=== PATIENT | female | born 1955 | race Caucasian/White ===

== ENCOUNTER 2023-06-15 10:24 | Emergency (ER) | payer OTHER, MEDICAID ==
[~2023-06-15] VITALS: Ht 160 cm; Wt 61.2 kg
[~2023-06-15 10:24] MED LIST: METO-290 PO; TERB250T35 PO; VITAMINS PO; [UNRECOGNIZED DRUG - CODE] IH
[2023-06-15 10:30] VITALS: BP_SYST 160; PULSE 90; RESP 19; TEMP 97.8; O2SAT 99
[2023-06-15 11:12] LABS: BASOPHILS % (AUTO) 0.8 % (0.0-2.0); EOSINOPHILS # (AUTO) 0.3 K/uL (0.0-0.4); EOSINOPHILS % (AUTO) 4.8 % (0.0-4.0); HEMATOCRIT 41.1 % (36-48); HEMOGLOBIN 13.4 g/dL (12.0-16.0); LYMPHOCYTES # (AUTO) 1.9 K/uL (1.0-5.5); LYMPHOCYTES % (AUTO) 32.1 % (20.5-51.5); MEAN CORPUSCULAR HEMOGLOBIN 29 pg (27-31); MEAN CORPUSCULAR HGB CONC 33 % (32-36); MEAN CORPUSCULAR VOLUME 90 fL (79.0-98.0); MONOCYTES # (AUTO) 0.5 K/uL (0.0-1.0); MONOCYTES % (AUTO) 8.9 % (1.7-9.3); NEUTROPHILS # (AUTO) 3.2 K/uL (1.8-7.7); NEUTROPHILS % (AUTO) 53.4 % (40.0-70.0); PLATELET COUNT (AUTO) 232 K/uL (130-430); RED BLOOD CELL COUNT(AUTO) 4.56 MIL/uL (4.2-6.2); RED CELL DISTRIBUTION WIDTH 14.8 % (9.0-15.0)
[2023-06-15 11:31] LABS: ALANINE AMINOTRANSFERASE 24 U/L (12-78); ALBUMIN 3.9 g/dL (3.4-4.8); ANION GAP 5 (5-15); ASPARTATE AMINOTRANSFERASE 19 U/L (10-37); CALCIUM 9.1 mg/dL (8.4-11.0); CARBON DIOXIDE 29 mmol/L (23-29); CHLORIDE 105 mmol/L (98-107); CREATININE 0.66 mg/dL (0.55-1.30); GFR AFRICAN AMERICAN 116 mL/min (>90); GFR NON AFRICAN-AMERICAN 96 mL/min (>90); GLUCOSE 109 mg/dL (74-106); POTASSIUM 3.7 mmol/L (3.5-5.1); SODIUM SERUM 139 mmol/L (136-145); TOTAL BILIRUBIN 0.4 mg/dL (0.0-1.0); UREA NITROGEN, BLOOD 14 mg/dL (8-21)
[2023-06-15 11:56] LABS: AMYLASE 38 U/L (0-100); LIPASE 32 U/L (16-77)
[2023-06-15] MEDS ORDERED: OXYCODONE/ACETAMINOPHEN 5-325 TABLET PO ONE (13:30)
[2023-06-15 14:53] VITALS: BP_SYST 137; PULSE 78; RESP 18; O2SAT 99
== END 2023-06-15 14:54 | disposition home or self-care (01) ==
LOC: SED 10:24
DX: R07.89 Other chest pain (principal); R10.12 Left upper quadrant pain; I10 Essential (primary) hypertension; J44.9 Chronic obstructive pulmonary disease, unspecified; Z88.8 Allergy status to other drugs, medicaments and biological substances; Z79.899 Other long term (current) drug therapy
CPT/HCPCS: 36415; 76376; 80053; 82150; 83690; 84484; 85025; 93005; 99284

== ENCOUNTER 2023-10-03 22:13 | Inpatient (IN) | payer OTHER ==
[~2023-10-03] VITALS: Ht 160 cm; Wt 63.5 kg
[2023-10-03 22:44] VITALS: BP_SYST 144; PULSE 104; RESP 16; TEMP 98.3; O2SAT 95
[2023-10-04 01:59] LABS: BASOPHILS # (AUTO) 0.1 K/uL (0.0-0.2); BASOPHILS % (AUTO) 0.9 % (0.0-2.0); EOSINOPHILS # (AUTO) 0.1 K/uL (0.0-0.4); EOSINOPHILS % (AUTO) 1.9 % (0.0-4.0); HEMATOCRIT 34.6 % (36-48); LYMPHOCYTES # (AUTO) 1.8 K/uL (1.0-5.5); LYMPHOCYTES % (AUTO) 31.8 % (20.5-51.5); MEAN CORPUSCULAR HEMOGLOBIN 31 pg (27-31); MEAN CORPUSCULAR HGB CONC 35 % (32-36); MEAN CORPUSCULAR VOLUME 89 fL (79.0-98.0); MONOCYTES # (AUTO) 0.5 K/uL (0.0-1.0); MONOCYTES % (AUTO) 9.1 % (1.7-9.3); NEUTROPHILS # (AUTO) 3.2 K/uL (1.8-7.7); NEUTROPHILS % (AUTO) 56.3 % (40.0-70.0); PLATELET COUNT (AUTO) 229 K/uL (130-430); RED BLOOD CELL COUNT(AUTO) 3.87 MIL/uL (4.2-6.2); RED CELL DISTRIBUTION WIDTH 14.6 % (9.0-15.0); WHITE BLOOD COUNT (AUTO) 5.7 K/uL (4.8-10.8)
[2023-10-04 02:21] LABS: ANION GAP 10 (5-15); CALCIUM 8.8 mg/dL (8.4-11.0); CARBON DIOXIDE 26 mmol/L (23-29); CHLORIDE 104 mmol/L (98-107); CREATININE 0.56 mg/dL (0.55-1.30); GFR AFRICAN AMERICAN 140 mL/min (>90); GFR NON AFRICAN-AMERICAN 115 mL/min (>90); GLUCOSE 67 mg/dL (74-106); POTASSIUM 3.8 mmol/L (3.5-5.1); SODIUM SERUM 140 mmol/L (136-145); UREA NITROGEN, BLOOD 9 mg/dL (8-21)
[2023-10-04 08:41] VITALS: BP_SYST 144; PULSE 77; O2SAT 92
[2023-10-04] MEDS ORDERED: NALOXONE HCL 0.4 MG/ML AMP (NARCAN) IVP PRN ×3 (08:45→09:30)
[2023-10-04] MEDS ORDERED: DOCUSATE SODIUM 100 MG CAPSULE PO PRN (08:45)
[2023-10-04] MEDS ORDERED: MUPIROCIN 2% TOPICAL OINTMENT 22 GM NS PRN (08:45)
[2023-10-04] MEDS ORDERED: ACETAMINOPHEN 325 MG TABLET PO PRN ×3 (08:45→09:30)
[2023-10-04] MEDS ORDERED: LORazepam 2 MG/ML VIAL IVP PRN (08:45)
[2023-10-04] MEDS ORDERED: MAGNESIUM SULFATE 50 ML IV PRN (08:45)
[2023-10-04] MEDS ORDERED: ONDANSETRON HCL 4 MG/2 ML VIAL IVP PRN (08:45)
[2023-10-04] MEDS ORDERED: IPRATROPIUM/ALBUTEROL SULFATE 3 ML AMPUL.NEB (DUONEB) INH PRN (08:45)
[2023-10-04] MEDS ORDERED: ZOLPIDEM TARTRATE 5 MG TABLET PO PRN (08:45)
[2023-10-04] MEDS ORDERED: MORPHINE 2 MG/ML INJ. SYRINGE IVP PRN ×2 (08:45)
[2023-10-04] MEDS ORDERED: TERbinafine HCL 250 MG TABLET(LamISIL) PO SCH (09:00)
[2023-10-04] MEDS: HYDROCHLOROTHIAZIDE 25 MG TABLET (HCTZ) PO SCH (10:52)
[2023-10-04] MEDS: LISINOPRIL 10 MG TABLET (PRINIVIL) PO ONE (10:56)
[2023-10-04] MEDS: HEPARIN SODIUM,PORCINE 5,000 UNITS/ML VIAL SUBCUT SCH (11:00)
[2023-10-04] MEDS: HYDROcodone/ACETAMIN 5-325 MG TAB (NORCO/ VICODIN) PO PRN (11:55)
[2023-10-04] MEDS ORDERED: METO25TA3 PO (12:17)
[2023-10-04] MEDS ORDERED: LIP10 PO (12:17)
[2023-10-04] MEDS ORDERED: HYDR4TAB57 PO (12:17)
[2023-10-04] MEDS ORDERED: LISI10TA29 PO (12:17)
[2023-10-04] MEDS ORDERED: VARE1TAB24 PO (12:17)
[2023-10-04] MEDS ORDERED: CLON1PAT10 TD (12:17)
[2023-10-04 13:34] VITALS: BP_SYST 128; PULSE 89; RESP 20; TEMP 98.4; O2SAT 99
[2023-10-04 16:30] VITALS: BP_SYST 137; PULSE 84; RESP 18; TEMP 98; O2SAT 98
[2023-10-04 20:00] VITALS: BP_SYST 116; BP_SYST 131; PULSE 67; PULSE 73; RESP 18; TEMP 97.3; TEMP 97.8; TEMP 98.2; O2SAT 96; O2SAT 97; O2SAT 98
[2023-10-04 20:52] LABS: BILIRUBIN,URINE 1+ (NEGATIVE); BLOOD, URINE NEGATIVE (NEGATIVE); CLARITY/URINE CLEAR (CLEAR); COLOR,URINE YELLOW (YELLOW); GLUCOSE,URINE NEGATIVE (NEGATIVE); KETONES,URINE 3+ (NEGATIVE); LEUKOCYTE ESTERASE ,URINE NEGATIVE (NEGATIVE); NITRITE, URINE NEGATIVE (NEGATIVE); PROTEIN URINE NEGATIVE (NEGATIVE); UROBILINOGEN,URINE 0.2 (0.2-1.0)
[2023-10-04 20:58] LABS: RBC,URINE NONE SEEN /HPF (0-3)
[2023-10-04 20:59] LABS: BACTERIA,URINE RARE /HPF (None Seen); MUCUS,URINE None Seen /LPF (None Seen); WBC,URINE 0-3 /HPF (0-3)
[2023-10-05] VITALS: BP_SYST 133; PULSE 69; RESP 18; TEMP 97.8; O2SAT 99
[2023-10-05 08:00] VITALS: O2SAT 98
[2023-10-05 08:10] LABS: CALCIUM 8.9 mg/dL (8.4-11.0); CREATININE 0.85 mg/dL (0.55-1.30); POTASSIUM 3.6 mmol/L (3.5-5.1)
[2023-10-05 08:27] LABS: BASOPHILS % (AUTO) 0.7 % (0.0-2.0); EOSINOPHILS # (AUTO) 0.3 K/uL (0.0-0.4); EOSINOPHILS % (AUTO) 4.8 % (0.0-4.0); HEMATOCRIT 36.8 % (36-48); HEMOGLOBIN 12.5 g/dL (12.0-16.0); LYMPHOCYTES # (AUTO) 2.3 K/uL (1.0-5.5); LYMPHOCYTES % (AUTO) 38.4 % (20.5-51.5); MEAN CORPUSCULAR HEMOGLOBIN 30 pg (27-31); MEAN CORPUSCULAR HGB CONC 34 % (32-36); MEAN CORPUSCULAR VOLUME 90 fL (79.0-98.0); MONOCYTES # (AUTO) 0.5 K/uL (0.0-1.0); MONOCYTES % (AUTO) 8.5 % (1.7-9.3); NEUTROPHILS # (AUTO) 2.8 K/uL (1.8-7.7); NEUTROPHILS % (AUTO) 47.6 % (40.0-70.0); PLATELET COUNT (AUTO) 281 K/uL (130-430); RED BLOOD CELL COUNT(AUTO) 4.11 MIL/uL (4.2-6.2); RED CELL DISTRIBUTION WIDTH 14.6 % (9.0-15.0)
[2023-10-05] MEDS ORDERED: NALOXONE HCL 0.4 MG/ML AMP (NARCAN) IVP PRN (08:45)
[2023-10-05] MEDS: LISINOPRIL 10 MG TABLET (PRINIVIL) PO SCH (10:04)
[2023-10-05] MEDS: HYDROmorphone 2 MG TAB PO PRN (10:32)
[2023-10-05 11:15] VITALS: BP_SYST 128; PULSE 71; RESP 17; TEMP 97; O2SAT 93
[2023-10-05 15:04] VITALS: BP_SYST 129; PULSE 76; RESP 16; TEMP 96.7; O2SAT 96
[2023-10-05 20:19] VITALS: O2SAT 99
[2023-10-06 00:30] VITALS: BP_SYST 135; PULSE 86; RESP 18; TEMP 97.1; O2SAT 93
[2023-10-06 04:10] VITALS: BP_SYST 133; PULSE 81; RESP 17; TEMP 98.3; O2SAT 94
[2023-10-06 07:18] LABS: CALCIUM 8.4 mg/dL (8.4-11.0); CREATININE 0.66 mg/dL (0.55-1.30); POTASSIUM 3.2 mmol/L (3.5-5.1)
[2023-10-06 07:27] LABS: BASOPHILS # (AUTO) 0.1 K/uL (0.0-0.2); BASOPHILS % (AUTO) 0.8 % (0.0-2.0); EOSINOPHILS # (AUTO) 0.3 K/uL (0.0-0.4); EOSINOPHILS % (AUTO) 4.8 % (0.0-4.0); HEMOGLOBIN 12.3 g/dL (12.0-16.0); LYMPHOCYTES # (AUTO) 2.2 K/uL (1.0-5.5); LYMPHOCYTES % (AUTO) 34.4 % (20.5-51.5); MEAN CORPUSCULAR HEMOGLOBIN 30 pg (27-31); MEAN CORPUSCULAR HGB CONC 34 % (32-36); MEAN CORPUSCULAR VOLUME 89 fL (79.0-98.0); MONOCYTES # (AUTO) 0.6 K/uL (0.0-1.0); MONOCYTES % (AUTO) 10.2 % (1.7-9.3); NEUTROPHILS # (AUTO) 3.2 K/uL (1.8-7.7); NEUTROPHILS % (AUTO) 49.8 % (40.0-70.0); PLATELET COUNT (AUTO) 262 K/uL (130-430); RED BLOOD CELL COUNT(AUTO) 4.05 MIL/uL (4.2-6.2); RED CELL DISTRIBUTION WIDTH 14.6 % (9.0-15.0); WHITE BLOOD COUNT (AUTO) 6.4 K/uL (4.8-10.8)
[2023-10-06 08:00] VITALS: BP_SYST 132; PULSE 69; RESP 18; TEMP 98.4; O2SAT 93; O2SAT 99
[2023-10-06] MEDS: POTASSIUM CHLORIDE 20 MEQ TABLET.ER PO PRN (11:07)
[2023-10-06 20:00] VITALS: BP_SYST 129; PULSE 74; RESP 18; TEMP 97.2; O2SAT 96
[2023-10-07] VITALS (7 sets, daily range): BP systolic 130–156; PULSE 72–101; RESP 15–18; TEMP 97–98.4; O2SAT 91–99
[2023-10-07 06:18] LABS: BASOPHILS # (AUTO) 0.1 K/uL (0.0-0.2); BASOPHILS % (AUTO) 0.9 % (0.0-2.0); EOSINOPHILS # (AUTO) 0.3 K/uL (0.0-0.4); EOSINOPHILS % (AUTO) 4.9 % (0.0-4.0); HEMATOCRIT 37.6 % (36-48); LYMPHOCYTES # (AUTO) 2.2 K/uL (1.0-5.5); LYMPHOCYTES % (AUTO) 37.5 % (20.5-51.5); MEAN CORPUSCULAR HEMOGLOBIN 31 pg (27-31); MEAN CORPUSCULAR HGB CONC 35 % (32-36); MEAN CORPUSCULAR VOLUME 90 fL (79.0-98.0); MONOCYTES # (AUTO) 0.5 K/uL (0.0-1.0); MONOCYTES % (AUTO) 9.6 % (1.7-9.3); NEUTROPHILS # (AUTO) 2.7 K/uL (1.8-7.7); NEUTROPHILS % (AUTO) 47.1 % (40.0-70.0); PLATELET COUNT (AUTO) 281 K/uL (130-430); RED BLOOD CELL COUNT(AUTO) 4.18 MIL/uL (4.2-6.2); RED CELL DISTRIBUTION WIDTH 14.9 % (9.0-15.0); WHITE BLOOD COUNT (AUTO) 5.7 K/uL (4.8-10.8)
[2023-10-07 07:06] LABS: CALCIUM 8.8 mg/dL (8.4-11.0); CREATININE 0.91 mg/dL (0.55-1.30); POTASSIUM 3.9 mmol/L (3.5-5.1)
== END 2023-10-07 17:55 | DRG 554 ==
LOC: SED 22:13 → SMU 10-04 05:00
PROVIDERS: ADMIT General Practice; ATTEND General Practice
DX: M19.011 Primary osteoarthritis, right shoulder (principal); F11.20 Opioid dependence, uncomplicated; M47.816 Spondylosis without myelopathy or radiculopathy, lumbar region; E87.6 Hypokalemia; J44.9 Chronic obstructive pulmonary disease, unspecified; E78.5 Hyperlipidemia, unspecified; I10 Essential (primary) hypertension; M19.012 Primary osteoarthritis, left shoulder; Z79.899 Other long term (current) drug therapy
CPT/HCPCS: 36415; 70450-TC; 71045; 72125-TC; 73030; 80048; 81000; 81001; 81015; 83037; 83735; 83880; 84484; 85025; 93005; 94760; 97116-GP; 97530-GP; 99285; J1644

== ENCOUNTER 2024-02-01 13:47 | Inpatient (IN) | payer OTHER ==
[~2024-02-01] VITALS: Ht 144.8 cm; Wt 54.4 kg
[~2024-02-01 13:47] MED LIST changes: +ATOR-449 PO; +CLON1PAT10 TD; +HYDR4TAB57 PO; +LISI10TA29 PO; -METO-290 PO; +METO25TA3 PO; -TERB250T35 PO; +VARE1TAB24 PO
[2024-02-01 13:49] VITALS: BP_SYST 124; PULSE 90; RESP 18; TEMP 97.9; O2SAT 97
[2024-02-01] MEDS: IPRATROPIUM/ALBUTEROL SULFATE 3 ML AMPUL.NEB (DUONEB) INH ONE (14:36)
[2024-02-01] MEDS: DEXAMETHASONE SOD PHOSPHATE 10 MG/ML VIAL IVP ONE (14:50)
[2024-02-01] MEDS: KETOROLAC TROMETHAMINE 30 MG VIAL IVP ONE (14:51)
[2024-02-01 15:10] LABS: BASOPHILS % (AUTO) 0.6 % (0.0-2.0); EOSINOPHILS # (AUTO) 0.1 K/uL (0.0-0.4); EOSINOPHILS % (AUTO) 1.3 % (0.0-4.0); HEMATOCRIT 36.1 % (36-48); HEMOGLOBIN 12.7 g/dL (12.0-16.0); LYMPHOCYTES # (AUTO) 1.4 K/uL (1.0-5.5); LYMPHOCYTES % (AUTO) 24.4 % (20.5-51.5); MEAN CORPUSCULAR HEMOGLOBIN 32 pg (27-31); MEAN CORPUSCULAR HGB CONC 35 % (32-36); MEAN CORPUSCULAR VOLUME 90 fL (79.0-98.0); MONOCYTES # (AUTO) 0.5 K/uL (0.0-1.0); NEUTROPHILS # (AUTO) 3.7 K/uL (1.8-7.7); NEUTROPHILS % (AUTO) 65.7 % (40.0-70.0); PLATELET COUNT (AUTO) 234 K/uL (130-430); RED BLOOD CELL COUNT(AUTO) 4.02 MIL/uL (4.2-6.2); RED CELL DISTRIBUTION WIDTH 15.3 % (9.0-15.0); WHITE BLOOD COUNT (AUTO) 5.7 K/uL (4.8-10.8)
[2024-02-01 15:22] LABS: INR 1.3 (0.8-1.2)
[2024-02-01 15:23] LABS: ANION GAP 9 (5-15); CALCIUM 9.2 mg/dL (8.4-11.0); CARBON DIOXIDE 30 mmol/L (23-29); CHLORIDE 97 mmol/L (98-107); CREATININE 0.73 mg/dL (0.55-1.30); GFR AFRICAN AMERICAN 103 mL/min (>90); GLUCOSE 91 mg/dL (74-106); POTASSIUM 3.1 mmol/L (3.5-5.1); SODIUM SERUM 136 mmol/L (136-145); UREA NITROGEN, BLOOD 11 mg/dL (8-21)
[2024-02-01 15:25] LABS: GFR NON AFRICAN-AMERICAN 85 mL/min (>90)
[2024-02-01 15:47] LABS: INFLUENZA TYPE A Negative (NEGATIVE); INFLUENZA TYPE B NEGATIVE (NEGATIVE)
[2024-02-01] MEDS: POTASSIUM CHLORIDE 20 MEQ/PKT PACKET PO ONE (15:58)
[2024-02-01] MEDS ORDERED: MULT-1279 PO (16:47)
[2024-02-01] MEDS ORDERED: [UNRECOGNIZED DRUG - CODE] TP (16:47)
[2024-02-01] MEDS ORDERED: HYDR25TA4 PO (16:47)
[2024-02-01] MEDS ORDERED: CLON0.5T2 PO (16:47)
[2024-02-01] MEDS ORDERED: ASCO500C18 PO (16:47)
[2024-02-01 17:01] VITALS: BP_SYST 124; PULSE 90; O2SAT 97
[2024-02-01] MEDS ORDERED: AZITHROMYCIN 500 MG/VIAL (ZITHROMAX) IV ONE (17:34)
[2024-02-01] MEDS: AZITHROMYCIN 500 MG in NS 250 ML IV ONE (17:34)
[2024-02-01 18:45] VITALS: BP_SYST 136; PULSE 79; RESP 20; TEMP 97.9; O2SAT 95
[2024-02-01 20:00] VITALS: O2SAT 92
[2024-02-01 20:02] VITALS: BP_SYST 116; PULSE 84; RESP 20; TEMP 97.4; O2SAT 94; O2SAT 95
[2024-02-01] MEDS: HYDROmorphone 2 MG TAB PO ONE (22:51)
[2024-02-01] MEDS ORDERED: ACETAMINOPHEN 325 MG TABLET PO PRN (23:00)
[2024-02-01] MEDS ORDERED: ONDANSETRON HCL 4 MG/2 ML VIAL IVP PRN (23:00)
[2024-02-01] MEDS ORDERED: HYDROmorphone 2 MG TAB PO PRN (23:30)
[2024-02-01] MEDS: IPRATROPIUM/ALBUTEROL SULFATE 3 ML AMPUL.NEB (DUONEB) INH SCH (23:39)
[2024-02-01 23:40] VITALS: O2SAT 96
[2024-02-01] MEDS: FAMOTIDINE 20 MG TABLET PO ONE (23:44)
[2024-02-01] MEDS: MAGNESIUM OXIDE 400 MG TABLET PO SCH (23:45)
[2024-02-01] MEDS: KETOROLAC TROMETHAMINE 15 MG VIAL IVP PRN (23:47)
[2024-02-02] VITALS (14 sets, daily range): BP systolic 106–129; PULSE 75–87; RESP 14–20; TEMP 97.2–98.7; O2SAT 93–97
[2024-02-02] MEDS: cefTRIAXone 1 GM in D5W 50 ML IV SCH (00:08)
[2024-02-02] MEDS: cefTRIAXone 1 GM IVPB PREMIX 50 ML IV ONE (00:18)
[2024-02-02 07:06] LABS: BASOPHILS % (AUTO) 0.2 % (0.0-2.0); HEMATOCRIT 35.6 % (36-48); HEMOGLOBIN 12.4 g/dL (12.0-16.0); LYMPHOCYTES # (AUTO) 0.5 K/uL (1.0-5.5); LYMPHOCYTES % (AUTO) 10.1 % (20.5-51.5); MEAN CORPUSCULAR HEMOGLOBIN 32 pg (27-31); MEAN CORPUSCULAR HGB CONC 35 % (32-36); MEAN CORPUSCULAR VOLUME 91 fL (79.0-98.0); MONOCYTES # (AUTO) 0.1 K/uL (0.0-1.0); MONOCYTES % (AUTO) 2.1 % (1.7-9.3); NEUTROPHILS # (AUTO) 4.1 K/uL (1.8-7.7); NEUTROPHILS % (AUTO) 87.6 % (40.0-70.0); PLATELET COUNT (AUTO) 242 K/uL (130-430); RED BLOOD CELL COUNT(AUTO) 3.91 MIL/uL (4.2-6.2); RED CELL DISTRIBUTION WIDTH 15.6 % (9.0-15.0); WHITE BLOOD COUNT (AUTO) 4.7 K/uL (4.8-10.8)
[2024-02-02 07:12] LABS: ALBUMIN 3.5 g/dL (3.4-4.8); CALCIUM 9.2 mg/dL (8.4-11.0); CREATININE 1.04 mg/dL (0.55-1.30); POTASSIUM 3.2 mmol/L (3.5-5.1); TOTAL BILIRUBIN 0.5 mg/dL (0.0-1.0); TOTAL PROTEIN, SERUM 6.4 g/dL (6.4-8.3)
[2024-02-02] MEDS ORDERED: NON-FORMULARY MEDICATION (Multivitamin 1 TAB) PO SCH (09:00)
[2024-02-02] MEDS: clonazePAM 0.5 MG TABLET PO SCH (09:00)
[2024-02-02] MEDS ORDERED: VARENICLINE TARTRATE 1 MG PO SCH (09:00)
[2024-02-02] MEDS: VARENICLINE TARTRATE 1 MG PO SCH (09:00)
[2024-02-02] MEDS: AZITHROMYCIN 500 MG in NS 250 ML IV SCH (10:22)
[2024-02-02] MEDS: MAGNESIUM OXIDE 400 MG TABLET PO ONE (10:27)
[2024-02-02] MEDS: predniSONE 20 MG TABLET PO SCH (10:28)
[2024-02-02] MEDS: ASCORBIC ACID 500 MG TABLET PO SCH (10:28)
[2024-02-02] MEDS: HYDROCHLOROTHIAZIDE 25 MG TABLET (HCTZ) PO SCH (10:29)
[2024-02-02] MEDS: MULTIVITAMINS TAB 1 TABLET PO SCH (10:29)
[2024-02-02] MEDS: METOPROLOL SUCCINATE 25 MG TAB.SR.24H (TOPROL XL) PO SCH (10:30)
[2024-02-02] MEDS: ATORVASTATIN 10 MG TABLET PO SCH (10:30)
[2024-02-02] MEDS: LISINOPRIL 10 MG TABLET (PRINIVIL) PO SCH (10:30)
[2024-02-02] MEDS: POTASSIUM CHLORIDE 20 MEQ TABLET.ER PO SCH (10:31)
[2024-02-02] MEDS: FAMOTIDINE 20 MG TABLET PO SCH (10:33)
[2024-02-02] MEDS ORDERED: ACETAMINOPHEN 650 MG SUPP.RECT RC PRN (12:00)
[2024-02-02] MEDS: POTASSIUM CHLORIDE 20 MEQ TABLET.ER PO ONE (12:01)
[2024-02-02] MEDS: HYDROmorphone 2 MG TAB PO PRN (12:05)
[2024-02-02] MEDS ORDERED: ONDANSETRON HCL 4 MG/2 ML VIAL IVP PRN (12:15)
[2024-02-02] MEDS: NICOTINE 21 MG/24 HR PATCH.TD24 TD ONE (14:27)
[2024-02-02 16:36] LABS: BILIRUBIN,URINE NEGATIVE (NEGATIVE); BLOOD, URINE NEGATIVE (NEGATIVE); CLARITY/URINE CLEAR (CLEAR); COLOR,URINE YELLOW (YELLOW); GLUCOSE,URINE NEGATIVE (NEGATIVE); KETONES,URINE TRACE (NEGATIVE); LEUKOCYTE ESTERASE ,URINE 1+ (NEGATIVE); NITRITE, URINE NEGATIVE (NEGATIVE); PH,URINE 6.5 (5.0-8.0); PROTEIN URINE NEGATIVE (NEGATIVE); UROBILINOGEN,URINE 0.2 (0.2-1.0)
[2024-02-02 16:44] LABS: BACTERIA,URINE FEW /HPF (None Seen); MUCUS,URINE None Seen /LPF (None Seen); RBC,URINE NONE SEEN /HPF (0-3)
[2024-02-03] VITALS (13 sets, daily range): BP systolic 93–123; PULSE 78–115; RESP 18–20; TEMP 97.4–98.4; O2SAT 93–98
[2024-02-03] MEDS: HYDROmorphone 2 MG/ML VIAL IVP PRN (00:10)
[2024-02-03 08:03] LABS: CALCIUM 9.1 mg/dL (8.4-11.0); CREATININE 0.97 mg/dL (0.55-1.30); POTASSIUM 4.2 mmol/L (3.5-5.1)
[2024-02-03] MEDS: NICOTINE 21 MG/24 HR PATCH.TD24 TD SCH (10:49)
[2024-02-03] MEDS: methylPREDNISolone SOD SUCC/PF 62.5 MG/ML VIAL IVP SCH ×2 (18:08→21:23)
[2024-02-03] MEDS ORDERED: HYDROmorphone 2 MG/ML VIAL IVP PRN (18:30)
[2024-02-03] MEDS ORDERED: NALOXONE HCL 0.4 MG/ML AMP (NARCAN) IVP PRN (18:30)
[2024-02-03] MEDS: POTASSIUM CHLORIDE 20 MEQ TABLET.ER PO ONE (20:18)
[2024-02-03] MEDS: CHOLECALCIFEROL (VITAMIN D3) 2,000 UNIT TABLET PO ONE (20:19)
[2024-02-03] MEDS: MAGNESIUM OXIDE 400 MG TABLET PO SCH (21:00)
[2024-02-03] MEDS: HYDROmorphone 1 MG/ML INJ. CARTRIDGE IVP PRN (22:30)
[2024-02-04] VITALS (12 sets, daily range): BP systolic 114–134; PULSE 76–108; RESP 17–20; TEMP 96.8–98.3; O2SAT 91–100
[2024-02-04 06:32] LABS: BASOPHILS % (AUTO) 0.1 % (0.0-2.0); HEMATOCRIT 35.7 % (36-48); HEMOGLOBIN 12.1 g/dL (12.0-16.0); LYMPHOCYTES # (AUTO) 0.5 K/uL (1.0-5.5); MEAN CORPUSCULAR HEMOGLOBIN 31 pg (27-31); MEAN CORPUSCULAR HGB CONC 34 % (32-36); MEAN CORPUSCULAR VOLUME 91 fL (79.0-98.0); MONOCYTES # (AUTO) 0.2 K/uL (0.0-1.0); MONOCYTES % (AUTO) 2.1 % (1.7-9.3); NEUTROPHILS # (AUTO) 7.9 K/uL (1.8-7.7); NEUTROPHILS % (AUTO) 91.8 % (40.0-70.0); PLATELET COUNT (AUTO) 261 K/uL (130-430); RED BLOOD CELL COUNT(AUTO) 3.95 MIL/uL (4.2-6.2); RED CELL DISTRIBUTION WIDTH 15.6 % (9.0-15.0); WHITE BLOOD COUNT (AUTO) 8.7 K/uL (4.8-10.8)
[2024-02-04 06:35] LABS: CALCIUM 8.9 mg/dL (8.4-11.0); CREATININE 1.09 mg/dL (0.55-1.30); POTASSIUM 4.4 mmol/L (3.5-5.1)
[2024-02-04 06:43] LABS: INR 1.2 (0.8-1.2); PROTHROMBIN TIME 12.2 SECS (9.5-12.5)
[2024-02-04] MEDS: CHOLECALCIFEROL (VITAMIN D3) 2,000 UNIT TABLET PO SCH (08:28)
[2024-02-04] MEDS: POTASSIUM CHLORIDE 20 MEQ TABLET.ER PO SCH (08:29)
[2024-02-04] MEDS ORDERED: PROMETHAZINE-DM 6.25 MG-15 MG/5 ML UDC PO PRN (11:00)
[2024-02-04] MEDS: ACETYLCYSTEINE 20% 4 ML VIAL (RT) INH SCH (11:00)
[2024-02-04] MEDS: ACETYLCYSTEINE 20% 4 ML VIAL (RT) ONE (11:20)
[2024-02-08] MEDS ORDERED: cloNIDine HCL 0.2 MG/24 HR PATCH.TDWK TD SCH (09:00)
== END 2024-02-04 20:00 | DRG 189 ==
LOC: SED 13:47 → STU 16:49 → SMU 02-04 05:15
PROVIDERS: ADMIT Internal Medicine; ATTEND Internal Medicine
DX: J96.20 Acute and chronic respiratory failure, unspecified whether with hypoxia or hypercapnia (principal); J44.1 Chronic obstructive pulmonary disease with (acute) exacerbation; E87.1 Hypo-osmolality and hyponatremia; J44.0 Chronic obstructive pulmonary disease with (acute) lower respiratory infection; M48.55XA Collapsed vertebra, not elsewhere classified, thoracolumbar region, initial encounter for fracture; E87.6 Hypokalemia; I10 Essential (primary) hypertension; J43.9 Emphysema, unspecified; E78.5 Hyperlipidemia, unspecified; G89.4 Chronic pain syndrome; Z20.822 Contact with and (suspected) exposure to COVID-19; F41.9 Anxiety disorder, unspecified; I70.8 Atherosclerosis of other arteries; J20.9 Acute bronchitis, unspecified; Z87.891 Personal history of nicotine dependence; Z79.899 Other long term (current) drug therapy
CPT/HCPCS: 36415; 71045; 71250-TC; 72131; 80048; 80053; 81000; 81001; 81015; 83605; 83735; 83880; 84484; 85025; 85610; 85730; 87040; 87086; 93005; 94640; 94760; 96374; 96375; 97110-GP; 97116-GP; 97163-GP; 97530-GP; 99285; G0378; J0456; J0696; J1100; J1170; J1885; J2930; J7050; J7060; J7512; J7608